=== PATIENT | male | born 1950 | race Caucasian/White ===

== ENCOUNTER → 2017-08-07 08:43 | Outpatient (CLI) | payer MEDICARE | END | disposition home or self-care (01) | LOC: D.RAD 08:30 | DX: R13.10 Dysphagia, unspecified (principal) ==

== ENCOUNTER → 2018-05-13 09:58 | Outpatient (CLI) | payer OTHER | END | disposition home or self-care (01) | LOC: D.MRI 09:58 | DX: M25.511 Pain in right shoulder (principal) ==

== ENCOUNTER → 2019-08-02 15:48 | Outpatient (CLI) | payer OTHER | END | disposition home or self-care (01) | LOC: D.MRI 15:48 | PROVIDERS: ATTEND Psychiatry & Neurology Neurology | DX: G20 Parkinson's disease (principal); R20.0 Anesthesia of skin ==